=== PATIENT | female | born 2000 | race Caucasian/White ===

== ENCOUNTER 2024-01-23 13:46 | Emergency (ER) | payer OTHER, SELFPAY ==
[2024-01-23 13:49] VITALS: BP 126/78
[2024-01-23 14:01] VITALS: BMI 33.8
--- NOTE | 2024-01-23 14:50 | ED.GENMED ---
History of Present Illness
General
Chief Complaint: Abdominal Pain
Source: patient
Exam Limitations: none
Time Seen by Provider: 01/23/24 13:54
Nursing documentation reviewed up to this point in time: agreed with
History of Present Illness
History of Present Illness:
Patient is a 23 year old female at estimated 11 weeks gestation presenting to the emergency department with upper abdominal pain x 1 month. Patient describes symptoms as essentially constant although some worsening after eating. She has noticed
intermittent nausea/vomiting. No fevers, chills, or urinary symptoms Patient reports normal bowel movements. No chest pain or shortness of breath.
Patient states that her LMP was mid October and she believes that she is approximately 11 weeks . She has not been seen by an OBGYN or had an ultrasound. She is unsure if nausea/vomiting that she has been experiencing is related to .
Denies any vaginal bleeding or loss of fluid.
Past History
Past History
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
ED Past Surgical History: None
Social History
Tobacco: Non-smoker
Living: with family
Review of Systems
Review of Systems
Allergies reviewed?: Yes
All Other Systems: ROS reviewed and negative except as documented in HPI and ROS
Phy Exam
Physical Exam
Physical Exam:
Vitals: Patient's vital signs are stable. Afebrile
General: Patient is well appearing, no acute distress
Skin: Warm and dry, no rashes or lesions
Head: Normocephalic, atraumatic
Eyes: Sclera nonicteric. EOMs intact. No nystagmus.
Throat: Protecting airway
Neck: Normal ROM, no cervical spine tenderness, no meningismus
Cardiac: Regular rate and rhythm, no murmurs.
Pulm: Normal respiratory effort, no wheezes, rales, rhonchi heard on exam.
Abdomen: Abdomen soft. No abdominal tenderness. No rebound tenderness or guarding. Negative Bhagat sign. No tenderness at McBurney's point. No CVA tenderness.
Extremities: No evidence of cyanosis or edema. Palpable distal pulses.
Neuro: AAOx3. CN II-XII intact. No focal neurologic deficits.
Psychiatric: Normal affect.
Course
Orders/Labs/Results
Orders:
Orders
01/23/24 14:26
1st Trimester US [US 1st Trimester] Urgent
Comment:
Reason For Exam: Abdominal pain - estimated 11 weeks gestation
01/23/24 14:32
Complete Blood Count/With Diff Urgent
Comprehensive Metabolic Panel Urgent
HCG, Serum Qualitative Screen Urgent
Lipase Urgent
Manual Differential Urgent
Monotest Urgent
Comment: ADD ON
01/23/24 14:43
Pantoprazole [Protonix IV] 40 mg IV NOW STA
01/23/24 15:14
Add On- LAB Urgent
Tests Added?: HCQ qualitative
01/23/24 15:45
Urinalysis Reflex To Culture Urgent
Date Specimen was Collected: 01/23/24
Time Specimen was Collected: 15:44
01/23/24 17:01
Add On- LAB Urgent
Tests Added?: monospot
Abnormal Lab Results
01/23/24
14:32
WBC 3.2 L 10^3/uL
(4.8-10.8)
Hct 35.9 L %
(37.0-47.0)
MPV 10.5 H fL
(7.4-10.4)
Abs Neuts (Manual) 1.1 L 10^3/uL
(1.4-6.5)
Segmented Neutrophils 36 L %
(42-75)
Monocytes (Manual) 18 H %
(2-9)
Creatinine 0.5 L mg/dL
(0.6-1.0)
Glucose 103 H mg/dl
(70-99)
01/23/24 14:32
01/23/24 14:32
Vital Signs
Initial and Last Documented VS:
Initial Vital Signs
Temp Pulse Resp BP Pulse Ox
98.4 F 91 18 126/78 98
01/23/24 13:49 01/23/24 13:49 01/23/24 13:49 01/23/24 13:49 01/23/24 13:49
Last Documented Vital Signs
Temp Pulse Resp BP Pulse Ox
98.4 F 91 18 126/78 98
01/23/24 13:49 01/23/24 13:49 01/23/24 13:49 01/23/24 13:49 01/23/24 13:49
MDM/Problems Addressed
Differential Diagnosis Includes:
Not limited to: gastritis, GERD, biliary colic, cholecystitis, viral illness, gastric ulcer, ectopic , etc
MDM/Problems Addressed:
23 y.o at estimated 11 weeks gestation presenting with upper abdominal discomfort over the past month. Also with intermittent nausea/vomiting. No US confirmation of . Vitals stable - patient afebrile. Exam as above. Abdomen soft and
nontender. No tenderness at McBurney's point. Negative bhagat sign. No CVA tenderness. Differential broad although lower suspicion for acute intraabdominal infection given benign abdominal exam. Will check basic labs, urine, and obtain pelvic US to
confirm . Will give PPI and reassess.
Labs noted. No clinically significant abnormalities. There is no leukocytosis. There is a mild leukopenia which appears to be chronic for patient. Urine does not appear infected. US shows live intrauterine measuring around 10W6D.
heart tones normal. Upon reassessment - patient without any pain - did see improvement with PPI. Suspicion very low for acute infectious process in abdomen. Patient has remained stable without any episodes of vomiting in ED. Feel patient is stable
for discharge. Will recommend dietary adjustment/OTC H2 reagan if symptoms persist to treat for possible GERD/gastritis component. Referral information given for OBGYN - she will contact tomorrow to scheduled appt for further care. Return
precautions discussed. Case discussed with attending physician.
Chronic conditions affecting care:
N/A
Acute Exacerbation and/or Progression of Chronic Illness:
N/A
*Radiology
Radiology exam reviewed: preliminary read by ED provider and radiology read reviewed
*Pulse Oximetry
Patient hypoxic: no
*EKG
Interpreted by ED Provider?: NA
*Swedger Interpretation
Rate: Swedger- N/A
*Critical Care Note
Total Time (30-74mins, 75-104mins- exclusive of procedures): Not Applicable
ED Attending Note
-
Portions of this chart may have been created with voice recognition software.� Occasional wrong word or��sound alike� substitutions may have occurred due to the inherent limitations of voice recognition software.
Discharge Plan
Departure
Patient Disposition: Home (Routine Discharge)
Date of Disposition: 01/23/24
Time of Disposition: 16:45
Patient with high blood pressure during this ER visit?: No
Condition: Good
Covid-19: Not Applicable
Discharge Problem:
Abdominal pain during , Nausea and vomiting
Instructions: Acid reflux and GERD during , Abdominal Pain, Adult ED
Prescriptions:
No Action
No Current Medications
0
Referrals:
Jeanna Ruiz, DO [Active] - Tomorrow
NONE,* [Family Provider] -
Activity Restrictions/Additional Instructions:
RETURN TO THE EMERGENCY DEPARTMENT WITH FEVERS, ABDOMINAL PAIN, INTRACTABLE NAUSEA/VOMITING, VAGINAL BLEEDING/FLUID LOSS, SEVERE BACK PAIN, OR ANY OTHER CONCERNS
-As discussed�your ultrasound showed a live intrauterine today. It is very important you call an [facility] in the morning to arrange care. The information has been provided for you above
-Your urine does not show any signs of infection today in the emergency department
-You should try and maintain a low acid diet you can try [id number] medications including zantac/pepcid if symptoms persist/worsen. It is important stay well-hydrated.
-As discussed that she should follow-up with a primary care provider for further evaluation/management
Monitor your symptoms closely return to the emergency department any acute worsening/new symptoms or any other concerns
Interventions
Interventions:
*Risk Screen - Suicide Last Done: 01/23/24 13:49
*General Assessment Last Done: 01/23/24 13:49
*Neglect/Abuse Screening Last Done: 01/23/24 13:49
ED- Fall Risk Assessment Last Done: 01/23/24 17:06
*ED COVID-19 Vaccine History Last Done: 01/23/24 17:06
*Nursing Disposition Last Done: 01/23/24 17:06
IU-Hfmxxg-Evtjjqszxr Assessment Last Done: 01/23/24 17:06
Discharge Date and Time
Discharge Date/Time: 01/23/24 17:06
Print Language: BARBADIAN
[2024-01-23 14:54] LABS: Hematocrit 35.9 % (37.0-47.0); Hemoglobin 12.7 g/dL (12.0-16.0); Mean Corp Hgb Conc. 35.4 g/dL (33.0-37.0); Mean Corpuscular Hgb 29.3 pg (27.0-31.0); Mean Corpuscular Volume 82.7 fL (81.0-99.0); Mean Platelet Volume 10.5 fL (7.4-10.4); Platelet Count 285 10^3/uL (130-400); Red Blood Cell Count 4.34 10^6/uL (4.20-5.40); Red Cell Dist. Width 11.5 % (11.5-14.5); White Blood Cell Count 3.2 10^3/uL (4.8-10.8)
[2024-01-23] MEDS: PROTONIX IV 40 MG IV (14:56)
[2024-01-23 14:57] LABS: ALT (SGPT) 25 U/L (0-35); AST (SGOT) 29 U/L (14-36); Albumin 4.2 g/dl (3.5-5.0); Alkaline Phosphatase 81 U/L (38-126); Blood Urea Nitrogen 8 mg/dl (7-17); Calcium 9.6 mg/dl (8.4-10.2); Carbon Dioxide 24 mmol/L (22-30); Chloride 101 mmol/L (98-107); Estimated Creatinine Clearance > 125 ml/min; Glucose 103 mg/dl (70-99); Lipase 73 U/L (23-300); Sodium 137 mmol/L (135-145); Total Bilirubin 0.5 mg/dl (0.2-1.3); Total Protein 7.4 g/dl (6.3-8.2); eGFR > 60.00
[2024-01-23 15:25] LABS: Absolute Neutrophils -Man Diff 1.1 10^3/uL (1.4-6.5); Band Neutrophils 0 % (0-3); Eosinophils 1 % (0-6); Lymphocytes 45 % (20-51); Monocytes 18 % (2-9); Normal RBC Morphology Yes; Platelets Checked Yes; Segmented Neutrophils 36 % (42-75); Total Cells Counted 100
[2024-01-23 15:44] LABS: HCG, Serum Qualitative Screen Positive
[2024-01-23 15:59] LABS: Urine Albumin Negative (Neg - Trace); Urine Bilirubin Negative (Negative); Urine Character Clear (Clear); Urine Color Yellow; Urine Glucose Negative (Negative); Urine Ketone Negative (Negative); Urine Leukocyte Negative (Negative); Urine Nitrite Negative (Negative); Urine Occult Blood Negative (Negative); Urine Specific Gravity 1.005 (<1.030); Urine Urobilinogen Negative (Neg - 1+); Urine pH 6.5 (5.0-9.0)
[2024-01-23 17:34] LABS: Monotest Negative (Negative)
== END 2024-01-23 17:06 | disposition home or self-care (01) ==
LOC: EMR 13:46
PROVIDERS: Physician Assistant; EMERGENCY PHYSICIAN Emergency Medicine
DX: O99.891 Other specified diseases and conditions complicating pregnancy (principal); R10.9 Unspecified abdominal pain; O21.9 Vomiting of pregnancy, unspecified; Z3A.11 11 weeks gestation of pregnancy
CPT/HCPCS: 99284; 96374; 76801; 80053; 81003; 83690; 84703; 85025; 86308